=== PATIENT | male | born 1985 | race Caucasian/White ===

== ENCOUNTER 2022-08-09 10:35 | Emergency (ER) | payer BC ==
[2022-08-09] MEDS ORDERED: HYDROmorphone 1 MG/ML Syringe IVPUSH ONE (10:52)
[2022-08-09] MEDS ORDERED: Ketorolac 30 MG/ML SDV IVPUSH ONE (10:52)
[2022-08-09] MEDS ORDERED: Sodium Chloride 0.9% 10 ML Syringe FLUSH PRN (10:53)
[2022-08-09] MEDS ORDERED: Sodium Chloride 0.9% 1,000 ML IV ONE ×2 (10:53→12:02)
[2022-08-09] MEDS ORDERED: Ondansetron 4 MG/2 ML SDV IV ONE (10:53)
[2022-08-09 11:31] LABS: ANION GAP 11.6 mEq/L (7-13)
[2022-08-09] MEDS ORDERED: Tamsulosin 0.4 MG Cap.ER PO ONE (12:01)
== END 2022-08-09 13:40 | disposition home or self-care (01) ==
LOC: DL.ED 10:35
DX: N20.0 Calculus of kidney (principal); N28.1 Cyst of kidney, acquired; Z88.0 Allergy status to penicillin; Z86.16 Personal history of COVID-19
CPT/HCPCS: 36415; 74176; 80053; 81001; 85025; 96361; 96374; 96375; 99284; A9270; J1170; J1885; J2405; J3490; J7030